=== PATIENT | male | born 1940 | race Caucasian/White ===

== ENCOUNTER → 2016-10-15 | Outpatient (REF) | payer MEDICARE ==
[~2016-10-15] MED LIST: ASPI81TA85 PO; LEVO125T3 PO; PRAV40TA2 PO; VALS1TAB46 PO
[2016-10-15 12:32] LABS: BACTERIA, URINE NONE SEEN; HYALINE CAST, URINE NONE SEEN /lpf (0-1); MICROSCOPIC EXAM PERFORMED; RBC, URINE 0-1 /hpf (0-3); SQUAMOUS EPITHELIAL CELL URINE NONE SEEN /hpf (SMALL AMT); WBC, URINE NONE SEEN /hpf (0-3)
== END ==
LOC: M LAB REF 11:57
PROVIDERS: ATTEND Internal Medicine
DX: R31.9 Hematuria, unspecified (principal)

== ENCOUNTER → 2019-04-19 | Outpatient (REF) | payer MEDICARE ==
[~2019-04-19] MED LIST changes: -LEVO125T3 PO; +LEVO125T4 PO; +LOSA50TA88 PO; -VALS1TAB46 PO; +VALS1TAB66 PO
== END ==
LOC: M LAB REF 13:17
PROVIDERS: ATTEND Internal Medicine
DX: R20.2 Paresthesia of skin (principal)

== ENCOUNTER 2019-04-29 10:34 | Day surgery (SDC) | payer MEDICARE ==
[~2019-04-29] VITALS: Ht 167.6 cm; Wt 75.0 kg
[~2019-04-29 10:34] MED LIST changes: +NS 1,000 ML IV ONE
--- NOTE | 2019-04-29 12:22 | ROOR ---
Patient Name: Parrish Ferguson Procedure Date: 04/29/2019 11:49 AM Date of : 1940 Age: 78 Room: [facility] Gender: Male Note Status: Finalized Procedure: Colonoscopy Indications: High risk colon cancer surveillance: Personal history of colonic polyps Providers: Pedro MORROW MD Referring MD: Laura SALVADOR MD Requesting Provider: Medicines: Monitored Anesthesia Care Complications: No immediate complications. Procedure: Pre-Anesthesia Assessment: - The heart rate, respiratory rate, oxygen saturations, blood pressure, adequacy of pulmonary ventilation, and response to care were monitored throughout the procedure. The Colonoscope was introduced through the anus and advanced to the cecum, identified by appendiceal orifice and ileocecal valve. The colonoscopy was performed without difficulty. The patient tolerated the procedure well. The quality of the bowel preparation was fair. Findings: The perianal and digital rectal examinations were normal. Four sessile polyps were found in the sigmoid colon and ascending colon. The polyps were 4 to 6 mm in size. These polyps were removed with a cold snare. Resection and retrieval were complete. Mild sigmoid diverticulosis and small internal hemorrhoids. The exam was otherwise without abnormality on direct and retroflexion views. Impression: - Preparation of the colon was fair. - Four 4 to 6 mm polyps in the sigmoid colon and in the ascending colon, removed with a cold snare. Resected and retrieved. - Mild sigmoid diverticulosis and moderate internal hemorrhoids. - The examination was otherwise normal on direct and retroflexion views. Recommendation: - Repeat colonoscopy in 3 years for surveillance. - Telephone endoscopist for pathology results in 2 weeks. Pedro Morrow MD Pedro MORROW MD 04/29/2019 12:22:07 PM Electronically signed by Pedro MORROW MD Number of Addenda: 0 Note Initiated On: 04/29/2019 11:49 AM Estimated Blood Loss: Estimated blood loss: none.
[2019-04-29 12:50] VITALS: BP 125/69
[2019-04-29] MEDS ORDERED: PROPOFOL 200 MG/20 ML VIAL As Ordered ONE (13:16)
[2019-04-29] MEDS ORDERED: LIDOCAINE 2% INJ 100 MG/5 ML SDV (FOR ANES.) As Ordered ONE (13:16)
== END 2019-04-29 13:04 | disposition home or self-care (01) ==
LOC: M OPP 10:34
PROVIDERS: ATTEND Internal Medicine Gastroenterology
DX: Z12.11 Encounter for screening for malignant neoplasm of colon (principal); Z86.010 Personal history of colon polyps; D12.5 Benign neoplasm of sigmoid colon; D12.2 Benign neoplasm of ascending colon; K57.30 Diverticulosis of large intestine without perforation or abscess without bleeding; K64.8 Other hemorrhoids; I10 Essential (primary) hypertension; E03.9 Hypothyroidism, unspecified; Z79.899 Other long term (current) drug therapy

== ENCOUNTER → 2019-10-20 | Outpatient (REF) | payer MEDICARE ==
[~2019-10-20] MED LIST changes: -NS 1,000 ML IV ONE
[2019-10-25 09:50] LABS: WBC, URINE AUTO 0-1 /HPF (0-3)
== END ==
LOC: M LAB REF 12:13
PROVIDERS: ATTEND Internal Medicine
DX: R31.9 Hematuria, unspecified (principal)

== ENCOUNTER → 2020-04-19 | Outpatient (REF) | payer MEDICARE ==
[~2020-04-19] MED LIST changes: -ASPI81TA85 PO; +ASPI81TA86 PO
[2020-04-19 13:56] LABS: BACTERIA, URINE AUTO NEGATIVE (NEGATIVE); RBC, URINE AUTO 1 /HPF (0-3); SQUAMOUS EPITHELIAL CELL UR AU 0 /HPF (0-6); WBC, URINE AUTO 0 /HPF (0-3)
== END ==
LOC: M LAB REF 12:36
PROVIDERS: ATTEND Internal Medicine
DX: R31.9 Hematuria, unspecified (principal)

== ENCOUNTER → 2020-10-19 | Outpatient (CLI) | payer MEDICARE ==
--- NOTE | 2020-10-19 10:07 | REP ---
INDICATION: PAIN/STIFFNESS. COMPARISON: None. TECHNIQUE: There are 7 views including flexion extension lateral views. FINDINGS: T1 is obscured by the shoulders on the lateral views. Vertebral body heights and alignment are normal except for minimal grade 1 retrolisthesis of C3 on 4 that does not correct on flexion or extension. 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 There is disc space narrowing and degenerative disc disease at every cervical spine level. The facets are normally aligned. Prevertebral soft tissues are normal. 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 There is foraminal encroachment from uncinate spurring on the left at C 3 4, C5-6 and C6-7; and on the right at C4-5. IMPRESSION: Degenerative disc disease throughout the cervical spine. 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 Mild grade 1 retrolisthesis of C3 on 4. Foraminal encroachment from uncinate spurring as described. <Electronically signed by Bradley Hope > 10/19/20 [id number]
== END ==
LOC: M WUC 09:29
PROVIDERS: ATTEND Internal Medicine
DX: M50.30 Other cervical disc degeneration, unspecified cervical region (principal); M43.22 Fusion of spine, cervical region; M47.812 Spondylosis without myelopathy or radiculopathy, cervical region

== ENCOUNTER → 2020-11-02 | Outpatient (CLI) | payer MEDICARE ==
--- NOTE | 2020-11-02 14:54 | REP ---
INDICATION: RT LAT NECK PAIN ? CYSTS VS MASSES SOFT TISSUE COMPARISON: None. TECHNIQUE: Mendoza scale B-mode evaluation using linear high-frequency transducer. FINDINGS: Directed ultrasound examination along the right lateral neck (as well as left side for comparison) demonstrates no obvious sonographic abnormality. IMPRESSION: No obvious abnormality by sonographic evaluation. <Electronically signed by Chavez Vernon > 11/02/20 [id number]
== END ==
LOC: M RAD 14:15
PROVIDERS: ATTEND Internal Medicine
DX: M54.2 Cervicalgia (principal)

== ENCOUNTER → 2021-01-16 | Outpatient (REF) | payer MEDICARE ==
[2021-01-17 12:24] LABS: BACTERIA, URINE AUTO NEGATIVE (NEGATIVE); RBC, URINE AUTO 2 /HPF (0-3); SQUAMOUS EPITHELIAL CELL UR AU 0 /HPF (0-6); WBC, URINE AUTO 0 /HPF (0-3)
== END ==
LOC: M LAB REF 12:00
PROVIDERS: ATTEND Internal Medicine
DX: R31.9 Hematuria, unspecified (principal)

== ENCOUNTER → 2022-06-12 | Outpatient (CLI) | payer MEDICARE ==
[~2022-06-12] MED LIST changes: +LOSA50TA28 PO; -LOSA50TA88 PO
== END ==
LOC: M LABSMTC 10:38
PROVIDERS: ATTEND Anesthesiology
DX: Z01.812 Encounter for preprocedural laboratory examination (principal); Z11.52 Encounter for screening for COVID-19

== ENCOUNTER 2022-06-17 08:34 | Day surgery (SDC) | payer MEDICARE ==
[~2022-06-17] VITALS: Ht 167.6 cm; Wt 77.0 kg
[~2022-06-17 08:34] MED LIST changes: +NS 1,000 ML IV ONE
[2022-06-17] MEDS ORDERED: propofoL 200 MG/20 ML VIAL As Ordered ONE (10:45)
[2022-06-17 10:52] VITALS: BP 109/59
== END 2022-06-17 10:54 | disposition home or self-care (01) ==
LOC: M OPP 08:34
PROVIDERS: ATTEND Internal Medicine Gastroenterology
DX: Z12.11 Encounter for screening for malignant neoplasm of colon (principal); Z86.010 Personal history of colon polyps; K57.30 Diverticulosis of large intestine without perforation or abscess without bleeding; K64.8 Other hemorrhoids; Z79.02 Long term (current) use of antithrombotics/antiplatelets; Z79.899 Other long term (current) drug therapy; I10 Essential (primary) hypertension; E03.9 Hypothyroidism, unspecified; Z80.52 Family history of malignant neoplasm of bladder

== ENCOUNTER → 2023-10-09 | Outpatient (REF) | payer MEDICARE ==
[~2023-10-09] MED LIST changes: -NS 1,000 ML IV ONE
== END ==
LOC: M SFHCDERM 13:22
PROVIDERS: ATTEND Nurse Practitioner Family
DX: C44.212 Basal cell carcinoma of skin of right ear and external auricular canal (principal); L57.0 Actinic keratosis; L57.8 Other skin changes due to chronic exposure to nonionizing radiation

== ENCOUNTER → 2024-08-24 | Outpatient (CLI) | payer MEDICARE ==
[2024-08-24 18:48] LABS: C REACTIVE PROTEIN QUANTITATIV 2.37 MG/DL (<1.0)
[2024-08-24 18:49] LABS: RHEUMATOID FACTOR QUANT < 3.5 IU/ML (<14)
== END ==
LOC: M WUC 15:37
PROVIDERS: ATTEND Internal Medicine
DX: M79.641 Pain in right hand (principal); M79.642 Pain in left hand; M19.041 Primary osteoarthritis, right hand; M19.042 Primary osteoarthritis, left hand

== ENCOUNTER → 2024-10-28 | Outpatient (REF) | payer MEDICARE ==
[~2024-10-28] MED LIST changes: +PRED25TA PO
== END ==
LOC: M SFHCDERM 13:30
PROVIDERS: ATTEND Nurse Practitioner Family
DX: L57.8 Other skin changes due to chronic exposure to nonionizing radiation (principal); L73.8 Other specified follicular disorders

== ENCOUNTER 2024-11-03 05:54 | Day surgery (SDC) | payer MEDICARE ==
[~2024-11-03] VITALS: Ht 167.6 cm; Wt 74.8 kg
[2024-11-03] MEDS ORDERED: ACETAMINOPHEN 1000MG/100ML IV BAG As Ordered ONE (06:54)
[2024-11-03] MEDS ORDERED: LIDOCAINE 2% 100MG/5ML SDV (FOR ANES.) As Ordered ONE (06:55)
[2024-11-03] MEDS ORDERED: ONDANSETRON 4MG 2ML VIAL As Ordered ONE (06:55)
[2024-11-03] MEDS ORDERED: KETOROLAC 30 MG/ML 1ML VIAL As Ordered ONE (06:55)
[2024-11-03] MEDS ORDERED: propofoL 200 MG/20 ML VIAL As Ordered ONE (06:55)
[2024-11-03] MEDS ORDERED: fentaNYL 100 MCG/2 ML INJECTION As Ordered ONE (07:01)
[2024-11-03] MEDS ORDERED: ONDANSETRON 4MG 2ML VIAL IV PRN (08:35)
[2024-11-03] MEDS ORDERED: METOCLOPRAMIDE INJ 10MG/2ML VIAL IV PRN (08:35)
[2024-11-03] MEDS ORDERED: diphenhydrAMINE 50MG/ML VIAL IV PRN (08:35)
[2024-11-03 09:29] VITALS: BP 152/74; TEMP 97.8; O2SAT 96
== END 2024-11-03 09:31 | disposition home or self-care (01) ==
LOC: M SDC 05:54
PROVIDERS: ATTEND Orthopaedic Surgery Hand Surgery
DX: G56.01 Carpal tunnel syndrome, right upper limb (principal); I10 Essential (primary) hypertension; E78.5 Hyperlipidemia, unspecified; E03.9 Hypothyroidism, unspecified; Z79.52 Long term (current) use of systemic steroids; Z79.899 Other long term (current) drug therapy
CPT/HCPCS: 29848; J0131; J0665; J1100; J1885; J2405; J3010

== ENCOUNTER → 2025-01-12 | Outpatient (REF) | payer MEDICARE ==
[~2025-01-12] MED LIST changes: -PRAV40TA2 PO; +PRAV40TA85 PO
== END ==
LOC: M LAB REF 14:25
PROVIDERS: ATTEND Internal Medicine
DX: M19.90 Unspecified osteoarthritis, unspecified site (principal)

== ENCOUNTER → 2025-04-20 | Outpatient (REF) | payer MEDICARE | LOC: M LAB REF 12:42 | PROVIDERS: ATTEND Internal Medicine | DX: M35.3 Polymyalgia rheumatica (principal) ==